=== PATIENT | female | born 1930 | race Caucasian/White ===

== ENCOUNTER 2017-01-27 16:30 | Emergency (ER) | payer MEDICARE, OTHER ==
[2017-01-27 17:11] LABS: HCT 35.4 % (37.0-47.0); HGB 11.4 g/dl (12.5-16.0); LYMPHOCYTE 19.7 % (15-48); MCH 31.1 pg (25.0-31.0); MCHC 32.2 g/dL (32.0-36.0); MCV 96.7 fL (78.0-100.0); MONOCYTE 8.9 % (0-12); MPV 11.3 fL (6.0-9.5); NEUTROPHIL 68.4 % (41-80); PLT 181 K/uL (150-400); RBC 3.66 M/uL (4.20-5.40); RDW 15.6 % (11.5-14.0); WBC 6.1 K/uL (4.0-10.5)
[2017-01-27 17:21] LABS: INR 2.01 (0.9-1.2); PROTHROMBIN TIME 22.2 SECONDS (11.7-14.0)
[2017-01-27 17:22] LABS: PTT 39.5 SECONDS (23.2-31.4)
[2017-01-27 17:30] LABS: CKMB 4.59 ng/mL (0.97-4.94); TROPONIN T 0.048 ng/mL
[2017-01-27 17:31] LABS: ALBUMIN 3.5 g/dL (3.4-4.8); BILIRUBIN - TOTAL 0.4 mg/dL (0.1-1.0); CREATININE 1.3 mg/dL (0.5-1.0); GLOBULIN (CALCULATION) 3.3 g/dL (2.2-4.2); POTASSIUM 3.6 mmol/L (3.5-5.1); TOTAL PROTEIN 6.8 g/dL (6.4-8.3)
[2017-01-27 20:22] LABS: CKMB 3.98 ng/mL (0.97-4.94); TROPONIN T 0.045 ng/mL
== END 2017-01-27 22:55 | disposition home or self-care (01) ==
LOC: FER 16:30
PROVIDERS: Emergency Medicine
DX: B34.9 Viral infection, unspecified (principal); I48.91 Unspecified atrial fibrillation; I11.0 Hypertensive heart disease with heart failure; I50.9 Heart failure, unspecified; I69.959 Hemiplegia and hemiparesis following unspecified cerebrovascular disease affecting unspecified side; J44.9 Chronic obstructive pulmonary disease, unspecified; F03.90 Unspecified dementia, unspecified severity, without behavioral disturbance, psychotic disturbance, mood disturbance, and anxiety
CPT/HCPCS: 36415; 36600; 71010; 80053; 82550; 82553; 82803; 84484; 85025; 85610; 85730; 93005

== ENCOUNTER 2017-07-31 16:56 | Inpatient (IN) | payer MEDICARE, OTHER ==
[~2017-07-31] VITALS: Ht 165.1 cm; Wt 65.3 kg
[2017-07-31 18:33] LABS: BASOPHIL 0.8 % (0-2); EOSINOPHIL 0.8 % (0-7); HCT 35.8 % (37.0-47.0); HGB 11.2 g/dl (12.5-16.0); LYMPHOCYTE 24.6 % (15-48); MCH 30.3 pg (25.0-31.0); MCHC 31.3 g/dL (32.0-36.0); MCV 96.8 fL (78.0-100.0); MONOCYTE 10.7 % (0-12); NEUTROPHIL 63.1 % (41-80); PLT 151 K/uL (150-400); RDW 15.6 % (11.5-14.0); WBC 6.1 K/uL (4.0-10.5)
[2017-07-31 18:36] LABS: INR 2.44 (0.9-1.2); PROTHROMBIN TIME 25.4 SECONDS (11.4-13.2)
[2017-07-31 18:37] LABS: PTT 50.6 SECONDS (24.3-32.1)
[2017-07-31 18:44] LABS: LACTIC ACID 1.1 mmol/L (0.5-2.2)
[2017-07-31 18:45] LABS: ALBUMIN 3.1 g/dL (3.4-4.8); BILIRUBIN - TOTAL 0.3 mg/dL (0.1-1.0); CREATININE 1.7 mg/dL (0.5-1.0); GLOBULIN (CALCULATION) 3.9 g/dL (2.2-4.2)
[2017-07-31 18:53] LABS: BILIRUBIN NEGATIVE (NEGATIVE); BLOOD NEGATIVE Ery/uL (NEGATIVE); CLARITY CLEAR (CLEAR); COLOR YELLOW (YELLOW); GLUCOSE (U) NORMAL (NORMAL); KETONE (U) NEGATIVE (NEGATIVE); LEUKOCYTES NEGATIVE Leu/uL (NEGATIVE); NITRITE NEGATIVE (NEGATIVE); PROTEIN NEGATIVE (NEGATIVE); UROBILINOGEN 0.2 mg/dL (0.2-1.0)
[2017-08-01 02:03] LABS: BASOPHIL 0.7 % (0-2); EOSINOPHIL 2.4 % (0-7); HCT 31.9 % (37.0-47.0); HGB 9.9 g/dl (12.5-16.0); LYMPHOCYTE 35.9 % (15-48); MCH 30.4 pg (25.0-31.0); MCV 97.9 fL (78.0-100.0); MONOCYTE 13.6 % (0-12); MPV 11.2 fL (6.0-9.5); NEUTROPHIL 47.4 % (41-80); PLT 138 K/uL (150-400); RBC 3.26 M/uL (4.20-5.40); RDW 15.6 % (11.5-14.0); WBC 5.9 K/uL (4.0-10.5)
[2017-08-01 02:15] LABS: INR 2.53 (0.9-1.2); PROTHROMBIN TIME 26.2 SECONDS (11.4-13.2)
[2017-08-01 02:21] LABS: ALBUMIN 2.7 g/dL (3.4-4.8); BILIRUBIN - TOTAL 0.2 mg/dL (0.1-1.0); CREATININE 1.7 mg/dL (0.5-1.0); GLOBULIN (CALCULATION) 3.5 g/dL (2.2-4.2); MAGNESIUM 1.79 mg/dL (1.40-2.10); POTASSIUM 3.4 mmol/L (3.5-5.1); TOTAL PROTEIN 6.2 g/dL (6.4-8.3)
[2017-08-01 02:22] LABS: CKMB 2.09 ng/mL (0.97-4.94)
[2017-08-01 02:39] LABS: TROPONIN T 0.104 ng/mL
[2017-08-01 08:45] LABS: CKMB 2.62 ng/mL (0.97-4.94); TROPONIN T 0.09 ng/mL
[2017-08-01 11:14] LABS: CKMB 2.85 ng/mL (0.97-4.94); TROPONIN T 0.088 ng/mL
--- NOTE | 2017-08-01 11:52 | NUR ---
REPORT GIVEN TO KEEGAN SOLIS AT THIS TIME. PTS VSS. NO ACUTE DISTRESS NOTED
[2017-08-01 16:39] LABS: CKMB 3.18 ng/mL (0.97-4.94); TROPONIN T 0.065 ng/mL
[2017-08-01 22:36] LABS: CKMB 3.24 ng/mL (0.97-4.94); TROPONIN T 0.06 ng/mL
[2017-08-02 06:18] LABS: HCT 35.8 % (37.0-47.0); HGB 10.8 g/dl (12.5-16.0); MCH 29.7 pg (25.0-31.0); MCHC 30.2 g/dL (32.0-36.0); MCV 98.4 fL (78.0-100.0); MPV 11.6 fL (6.0-9.5); RBC 3.64 M/uL (4.20-5.40); RDW 15.7 % (11.5-14.0); WBC 6.7 K/uL (4.0-10.5)
[2017-08-02 06:29] LABS: INR 2.9 (0.9-1.2); PROTHROMBIN TIME 29.2 SECONDS (11.4-13.2)
[2017-08-02 06:39] LABS: CREATININE 1.2 mg/dL (0.5-1.0); MAGNESIUM 1.73 mg/dL (1.40-2.10)
--- NOTE | 2017-08-03 00:55 | NUR ---
AT 2220 ON 08/02/17 THIS NURSE WAS IN ROOM WITH PATIENT, PATIENTS EYES ROLLED BACK IN HER HEAD, LIPS WERE BLUE, RAPID RESPONSE CALLED, THEN CODE BLUE. CODE TEAM ARRIVED, PATIENT ROLLED ONTO BACK BOARD, NO PULSE FELT, PATIENT BEING BAGGED BY RT. 5 COMPRESSIONS GIVEN, PATIENT GASPED, PATIENT FOUND TO BE IN A-FIB. STAT PORTABLE CHEST X-RAY, ABG, EKG COMPLETED. DR. VASQUEZ SAW PATIENT AND ORDERED INTUBATION, LABS, AND MOVE TO ICU. PATIENT MOVED TO ICU
[2017-08-03 02:02] LABS: HCT 33.5 % (37.0-47.0); HGB 10.3 g/dl (12.5-16.0); MCH 30.5 pg (25.0-31.0); MCHC 30.7 g/dL (32.0-36.0); MCV 99.1 fL (78.0-100.0); MPV 11.5 fL (6.0-9.5); RBC 3.38 M/uL (4.20-5.40); WBC 9.1 K/uL (4.0-10.5)
[2017-08-03 02:23] LABS: CKMB 3.82 ng/mL (0.97-4.94); TROPONIN T 0.072 ng/mL
[2017-08-03 02:24] LABS: MAGNESIUM 1.68 mg/dL (1.40-2.10); PHOSPHORUS 2.6 mg/dL (2.7-4.5)
== END 2017-08-05 06:30 | disposition expired | DRG 208 ==
LOC: FER 16:56 → FTCU 20:05 → FMS 08-01 12:46 → FICU 08-02 22:41 → FMS 08-04 14:00
PROVIDERS: Internal Medicine; Nurse Practitioner; ADMIT Internal Medicine
PROC: 0BH17EZ Insertion of Endotracheal Airway into Trachea, Via Natural or Artificial Opening (ICD-10-PCS; principal; 2017-08-02)
PROC: 5A1945Z Respiratory Ventilation, 24-96 Consecutive Hours (ICD-10-PCS; 2017-08-02)
DX: J69.0 Pneumonitis due to inhalation of food and vomit (principal); I21.4 Non-ST elevation (NSTEMI) myocardial infarction; J96.10 Chronic respiratory failure, unspecified whether with hypoxia or hypercapnia; J90 Pleural effusion, not elsewhere classified; I27.2 Other secondary pulmonary hypertension; I69.354 Hemiplegia and hemiparesis following cerebral infarction affecting left non-dominant side; N18.3 Chronic kidney disease, stage 3 (moderate); E03.9 Hypothyroidism, unspecified; R19.7 Diarrhea, unspecified; I48.2 Chronic atrial fibrillation; I12.9 Hypertensive chronic kidney disease with stage 1 through stage 4 chronic kidney disease, or unspecified chronic kidney disease; F03.90 Unspecified dementia, unspecified severity, without behavioral disturbance, psychotic disturbance, mood disturbance, and anxiety; F32.9 Major depressive disorder, single episode, unspecified; M10.9 Gout, unspecified; I07.1 Rheumatic tricuspid insufficiency; E87.6 Hypokalemia; G47.30 Sleep apnea, unspecified; I34.0 Nonrheumatic mitral (valve) insufficiency; E78.5 Hyperlipidemia, unspecified; Z51.5 Encounter for palliative care; Z79.01 Long term (current) use of anticoagulants; Z79.82 Long term (current) use of aspirin; Z79.899 Other long term (current) drug therapy; Z99.81 Dependence on supplemental oxygen
CPT/HCPCS: 31500; 36415; 36600; 70450; 71010; 71250; 80048; 80053; 80162; 81003; 82550; 82553; 82803; 83605; 83735; 83880; 84100; 84443; 84484; 85025; 85610; 85730; 87040; 87045; 87046; 87088; 87205; 87493; 92526; 93005; 94002; 94010; 94640; 94762; 94770; 97116; 97163; 97167; 97530; 97530-GP; 97535; J0456; J2060; J2270; J2405; J2543; J2704; J3010